=== PATIENT | female | born 1975 | race Caucasian/White ===

== ENCOUNTER 2019-09-11 19:50 | Inpatient (IN) | payer SELFPAY ==
[~2019-09-11] VITALS: Ht 172.7 cm; Wt 81.0 kg
[2019-09-11] MEDS ORDERED: IV RINGERS SOLUTION,LACTATED 1,000 ML IV SCH (20:08)
[2019-09-11 21:02] LABS: INFLUENZA A PATIENT NEGATIVE (NEGATIVE); INFLUENZA B PATIENT NEGATIVE (NEGATIVE)
--- NOTE | 2019-09-11 21:24 | PHYS DOC ---
Past History Past Medical History: Bronchitis, Kidney Stones, Other Additional Past Medical Histor: has 3 kidneys and 3 urethra tubes Additional Past Surgical Histo: ovarian cyst removal Smoking: Cigarettes Alcohol Use: None General Adult EDM: Chief Complaint: FEVER...I ve been sick for a while..Flu like....Diarrhea..headache,...aches..but then I developed this bad cough... I was exposed to this cassius that came back from [place]..and three in the group became + for Covid...but he was coming every day to [employer] where I work..." HPI: HPI: Patient is a 43 year old female who presents with above hx fever, cough, diarrhea, malaise, arthralgia, myalgia, and weakness. Patient does have some right chest wall pain associated with repeat coughing episodes. Patient does smoke. No recent travel. But has contact with a individual who came back from [place] in which 3 people in his group were tested positive for Covid19. Patient works at [employer]. Patient did not get flu vaccination this season. Patient states chest pain is been persistent with cough that is nonproductive the last 2 days. Patient does not normally follow-up with a primary care. Patient does have past medical history of kidney stones some of which required ureteral l stents. Patient has not had any travel outside the [place] area. Her 2 dogs Mackinac is a Great Nain and Pit Bull dog Deisel are well. No hx bad food intake. Review of Systems: Review of Systems: Constitutional: History of fever or chills Eyes: Denies change in visual acuity HENT: History of nasal congestion or sore throat Respiratory: History of nonproductive cough or shortness of breath Cardiovascular: Complains of right chest wall c history hest pain or edema GI: History generalized abdominal pain, nausea, and diarrhea. Currently diarrhea has resolved : Denies dysuria Musculoskeletal: Complains of generalized arthralgia myalgia and weakness Integument: Denies rash Neurologic: Denies headache, focal weakness or sensory changes Endocrine: Denies polyuria or polydipsia Lymphatic: Denies swollen glands Psychiatric: Denies depression or anxiety Heart Score: HEART Score for Chest Pain: HEART Score for Chest Pain Response (Comments) Value Age < 45 0 Risk Factors 1 or 2 Risk Factors 1 Troponin < Normal Limit 0 Total 1 Risk Factors: Risk Factors: DM, Current or recent (<one month) smoker, HTN, HLP, family history of CAD, obesity. Risk Scores: Score 0 - 3: 2.5% MACE over next 6 weeks - Discharge Home Score 4 - 6: 20.3% MACE over next 6 weeks - Admit for Clinical Observation Score 7 - 10: 72.7% MACE over next 6 weeks - Early Invasive Strategies Family History: Family History: Noncontributory to presentation Current Medications: Current Meds: Current Medications Medications (Trade) Dose Ordered Sig/Carley Start Time Stop Time Status Last Admin Dose Admin Lactated Ringer's 1,000 ml @ 100 mls/hr Q10H 09/11/19 20:08 09/12/19 06:07 UNV Allergies: Allergies: No known drug allergies Physical Exam: PE: Constitutional: Mild distress, non-toxic appearance. [] HENT: Normocephalic, atraumatic, bilateral external ears normal, oropharynx dry, no oral exudates, nose normal. [] Eyes: PERRLA, EOMI, conjunctiva normal, no discharge. [] Neck: Normal range of motion, no tenderness, supple, no stridor. [Right external jugular IV Cardiovascular: Tachycardia heart rate regular rhythm, no murmur [] Lungs & Thorax: Bilateral breath sounds equal at apex with scattered wheezing throughout on auscultation []. Reproducible right pectoral chest wall pain on palpation and movement of right arm. Abdomen: Bowel sounds hyperactive l, soft, mild generalized tenderness, no masses, no pulsatile masses. [] No rebound Skin: Warm, dry, no erythema, no rash. Cap refill less than 2 seconds in fingers Back: No tenderness, no CVA tenderness. [] Extremities: No tenderness, no cyanosis, no clubbing, ROM intact, bilateral ankle edema .. No psoas sign Neurologic: Alert and oriented X 3, normal motor function, normal sensory function, no focal deficits noted. [] Psychologic: Affect anxious , judgement normal, mood normal. [] Current Patient Data: Labs: Laboratory Tests Test 09/11/19 20:02 Group A Streptococcus Rapid Negative (NEGATIVE) Vital Signs: Vital Signs Date Time Temp Pulse Resp B/P (MAP) Pulse Ox O2 Delivery O2 Flow Rate FiO2 09/11/19 19:50 98.8 104 30 131/79 (96) 98 Room Air EKG: EKG: My interpretation EKG shows a sinus rhythm at 89 bpm. No findings of acute STEMI of contralateral changes. [] Radiology/Procedures: Radiology/Procedures: My interpretation chest x-ray shows no acute cardiopulmonary findings. [] Course & Med Decision Making: Course & Med Decision Making Pertinent Labs and Imaging studies reviewed. (See chart for details) Admit to , consult cardiology. US legs for edema, pain. Impression: 1. Fever 2. Viral syndrome 3. History of possible exposure to Covid 19 4. Tobacco use 5. Bronchitis 6. Anemia= hemoglobin 9.8 microcytic 71-hypochromic 22 7. Chest Wall pain.- Heart score 3 8. Elevated D-dimer 1.01 [] Dragon Disclaimer: Dragon Disclaimer: This electronic medical record was generated, in whole or in part, using a voice recognition dictation system. Departure Departure: Disposition: HOME/RESIDENCE PRIOR TO ADM Condition: STABLE COVID-19 Assessment COVID-19 Patient Risks: Age 65 or older: No Sign of co-morbidity: Yes Exp to person + for COVID: Yes Exp to PUI: Yes Travel from affected area: No Lower respiratory symptoms: Yes Fever: Yes Comments: Use PPE equipment as provided,hat, face shield, M95, yellow gown, shoe cover and gloves. Dragon Disclaimer This chart was dictated in whole or in part using Voice Recognition software in a busy, high-work load, and often noisy Emergency Department environment. It may contain unintended and wholly unrecognized errors or omissions. Dragon Disclaimer This chart was dictated in whole or in part using Voice Recognition software in a busy, high-work load, and often noisy Emergency Department environment. It may contain unintended and wholly unrecognized errors or omissions. Dragon Disclaimer This chart was dictated in whole or in part using Voice Recognition software in a busy, high-work load, and often noisy Emergency Department environment. It may contain unintended and wholly unrecognized errors or omissions. BOB NUNEZ MD Sep 11, 2019 21:24
[2019-09-11 21:27] LABS: BASO # 0.1 x10^3/uL (0.0-0.2); BASO % 2 % (0-3); EOS % 1 % (0-3); HEMATOCRIT 31.7 % (36.0-47.0); HEMOGLOBIN 9.8 g/dL (12.0-15.5); LYMPH # 1.1 x10^3/uL (1.0-4.8); LYMPH % 31 % (24-48); MEAN CORPUSCULAR HEMOGLOBIN 22 pg (25-35); MEAN CORPUSCULAR HGB CONC 31 g/dL (31-37); MEAN CORPUSCULAR VOLUME 71 fL (79-100); MONO # 0.3 x10^3/uL (0.0-1.1); MONO % 8 % (0-9); NEUT # 2.1 x10^3uL (1.8-7.7); NEUT % 58 % (31-73); PLATELET COUNT 359 x10^3/uL (140-400); RED BLOOD COUNT 4.44 x10^6/uL (3.50-5.40); RED CELL DISTRIBUTION WIDTH 18.2 % (11.5-14.5); WHITE BLOOD COUNT 3.6 x10^3/uL (4.0-11.0)
--- NOTE | 2019-09-11 21:28 | RAD ---
PORTABLE CHEST 1V 09/11/2019 8:08 PM INDICATION: Cough COMPARISON: None available TECHNIQUE: Portable frontal view of the chest is provided. FINDINGS: The cardiomediastinal silhouette is within normal limits. Lungs are clear. There are no significant pleural effusions. There is no pulmonary vascular congestion. No pneumothorax. No suspicious osseous abnormality. IMPRESSION: There is no acute cardiopulmonary process. Electronically signed by: Smiley Whitaker MD (09/11/2019 9:25 PM) [facility]
[2019-09-11 21:44] LABS: ANION GAP 10 (6-14); BLOOD UREA NITROGEN 7 mg/dL (7-20); CALCIUM 9.3 mg/dL (8.5-10.1); CARBON DIOXIDE 26 mmol/L (21-32); CHLORIDE 101 mmol/L (98-107); CREATININE 0.7 mg/dL (0.6-1.0); GFR 91.3; GLUCOSE 96 mg/dL (70-99); SODIUM 137 mmol/L (136-145)
[2019-09-11 21:48] LABS: ALK PHOS 87 U/L (46-116); ALT (SGPT) 18 U/L (14-59); AST (SGOT) 22 U/L (15-37); DIRECT BILIRUBIN < 0.1 mg/dL (0.0-0.2); LIPASE 139 U/L (73-393); MAGNESIUM 2.1 mg/dL (1.8-2.4); TOTAL BILIRUBIN 0.2 mg/dL (0.2-1.0)
[2019-09-11 21:54] LABS: ANISOCYTOSIS SLIGHT; HYPOCHROMIA MOD; MICROCYTOSIS MOD
[2019-09-11 21:55] LABS: PLT ESTIMATE ADEQUATE (ADEQUATE)
[2019-09-11 22:16] LABS: AMPHETAMINE/METHAMPHETAMINE NEG (NEG); BARBITURATES NEG (NEG); BENZODIAZEPINES NEG (NEG); CANNABINOIDS NEG (NEG); COCAINE NEG (NEG); METHADONE NEG (NEG); OPIATES NEG (NEG); PHENCYCLIDINE NEG (NEG)
[2019-09-11 22:20] LABS: BACTERIA,URINE 0 /HPF (0-FEW); BILIRUBIN,URINE NEG (NEG); CLARITY,URINE CLEAR; COLOR,URINE YELLOW; GLUCOSE,URINE NEG (NEG); NITRITE,URINE NEG (NEG); RBC,URINE OCC /HPF (0-2); SQUAMOUS EPITHELIAL CELL,UR MANY /LPF; UROBILINOGEN,URINE 0.2 mg/dL (0.2 mg/dL)
[2019-09-11] MEDS ORDERED: ENOXAPARIN ** NOTE DOSE ** SYRINGE SQ ONE (23:00)
[2019-09-11] MEDS ORDERED: HYDROcodon/IBUPROFEN 7.5/200MG 1 TAB TABLET PO ONE (23:00)
[2019-09-11] MEDS ORDERED: ONDANSETRON PF 4 MG/2 ML VIAL. IVP PRN (23:00)
[2019-09-11] MEDS ORDERED: ANTI-COAG MONITOR BY PHARMACY. MC PRN (23:15)
[2019-09-12] VITALS (7 sets, daily range): BP systolic 92–118; BP diastolic 49–65
--- NOTE | 2019-09-12 01:45 | NUR ---
Admit Note: Pt transported via EMS from ED to ICU room 3 (med/surg status). VSS. No c/o pain or n/v at this time. Pt able to ambulate from cart to bed w/no assistance. Admission documentation completed, pt oriented to room and unit routines, how to use call light system, and toileting in ICU rooms. Pt has no further questions at this time. Will continue to monitor.
--- NOTE | 2019-09-12 04:57 | EKG ---
[address] [address] Test Date: 2019-09-11 Test Time: 20:25:45 Pat Name: NU NEW Department: Room: [id number] 1 Gender: F Operations Research Manager: : 1975 Requested By: BOB NUNEZ Order Number: [id number] Reading MD: Nabil Peterson Measurements Intervals [place] Rate: 89 P: 45 FL: 156 QRS: 71 QRSD: 82 T: 42 QT: 336 QTc: 410 Interpretive Statements SINUS ARRHYTHMIA Electronically Signed On 09-12-2019 8:06:53 CDT by Nabil Peterson
[2019-09-12 05:04] LABS: BASO % 2 % (0-3); EOS # 0.1 x10^3/uL (0.0-0.7); EOS % 3 % (0-3); HEMATOCRIT 31.6 % (36.0-47.0); HEMOGLOBIN 9.6 g/dL (12.0-15.5); LYMPH # 1.2 x10^3/uL (1.0-4.8); LYMPH % 45 % (24-48); MEAN CORPUSCULAR HEMOGLOBIN 22 pg (25-35); MEAN CORPUSCULAR HGB CONC 30 g/dL (31-37); MEAN CORPUSCULAR VOLUME 72 fL (79-100); MONO # 0.2 x10^3/uL (0.0-1.1); MONO % 8 % (0-9); NEUT # 1.1 x10^3uL (1.8-7.7); NEUT % 43 % (31-73); PLATELET COUNT 323 x10^3/uL (140-400); RED BLOOD COUNT 4.39 x10^6/uL (3.50-5.40); RED CELL DISTRIBUTION WIDTH 18.3 % (11.5-14.5); WHITE BLOOD COUNT 2.7 x10^3/uL (4.0-11.0)
[2019-09-12 05:25] LABS: CALCIUM 8.6 mg/dL (8.5-10.1); CREATININE 0.7 mg/dL (0.6-1.0); GFR 91.3; POTASSIUM 3.7 mmol/L (3.5-5.1)
[2019-09-12 05:50] LABS: PLT ESTIMATE ADEQUATE (ADEQUATE)
[2019-09-12 05:51] LABS: ANISOCYTOSIS SLIGHT; HYPOCHROMIA MOD
[2019-09-12 05:52] LABS: MICROCYTOSIS MOD; OVALOCYTES FEW
[2019-09-12] MEDS: IV RINGERS SOLUTION,LACTATED 1,000 ML IV SCH ×3 (06:00→16:00)
[2019-09-12] MEDS ORDERED: IPRATRPIUM/ALBUTEROL 0.5/2.5MG 3 ML NEBU. NEB SCH (08:00)
[2019-09-12] MEDS ORDERED: ALBUTEROL SULFATE 8GM INHALER. INH PRN (08:45)
[2019-09-12] MEDS ORDERED: ENOXAPARIN ** NOTE DOSE ** SYRINGE SQ SCH (09:00)
--- NOTE | 2019-09-12 10:00 | RAD ---
Exam: Bilateral venous doppler. Indication: Bilateral leg edema. Results: Lower extremity venous Doppler was performed. Real-time imaging with compression, color flow imaging and Doppler with augmentation were utilized. There is normal compression and augmentation. Phasic flow is demonstrated. There is no color flow or B scale abnormality. Impression: Normal bilateral venous doppler. Electronically signed by: Joe Cedeno MD (09/12/2019 9:57 AM) [id number]
[2019-09-12] MEDS ORDERED: ACETAMINOPHEN 325 MG TABLET PO ONE (10:45)
[2019-09-12] MEDS ORDERED: ACETAMINOPHEN 325 MG TABLET PO PRN (10:45)
[2019-09-12] MEDS: ASPIRIN 325 MG TABLET PO SCH (10:54)
[2019-09-12] MEDS: HYDROcodone/APAP 5/325MG 1 TAB TABLET PO PRN ×2 (10:54→17:41)
--- NOTE | 2019-09-12 12:47 | NUR ---
IP: patient test pending for COVID-19, requires contact and airborne precautions.
[2019-09-12] MEDS ORDERED: ASA/APAP/CAFFEINE 250/250/65MG TABLET. PO PRN (14:45)
--- NOTE | 2019-09-12 18:09 | HP ---
ADMIT DATE: 09/11/2019 HISTORY OF PRESENT ILLNESS: The patient is a 43-year-old female patient, who came to the Emergency Room complaining of having fever with headache that has been going on for almost a week, has also chest pain, had had cough that has been going on for almost 2 weeks ago and had had fever when she came to the Emergency Room up to 100.8. She also has cough with yellowish sputum. She stated that she was exposed, who came from [place] and 3 in group became positive for COVID-19, but he was coming every day [employer] where she works. She also complained of generalized arthralgia, myalgia and weakness. She does have some chest wall pain associated with repeated coughing episode. She does smoke, but denied any recent travel. She has contacted individuals who came back from [place] in which 3 people in his group were tested positive for COVID-19. 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. She did not get her flu vaccination this season. She does not have any primary care physician's office. PAST MEDICAL HISTORY: Significant for kidney stones for which she underwent cystoscopy and retrograde ureteroscopy and stent deployment x 2. She had also a laparoscopic laparotomy for ovarian cyst. PAST SURGICAL HISTORY: Significant for cystoscopy and retrograde ureteroscopy and stent deployment x 2 and exploratory laparotomy for ovarian cyst. ALLERGIES: SHE IS ALLERGIC TO SULFA DRUGS. MEDICATIONS: She is not on any medication, normally by prescription or [id number] according to her. FAMILY HISTORY: She has 2 older brothers and 1 younger brother. Her younger brother is known to have diabetes. Her father is alive at age of 74 and healthy. Mother is alive at age of 72 and she has diabetes, systemic lupus erythematosus, sarcoidosis and hypertension. SOCIAL HISTORY: She is , has 2 sons and 1 daughter. She smokes half to one pack a day, does not drink alcohol or use any recreational drugs. 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. REVIEW OF SYSTEMS: The patient denied any blurring of vision, cataract, glaucoma or macular degeneration. Denied any earache, tinnitus or sensorineural deafness. Denied any nosebleed, stuffy nose or postnasal drip. Denied any sore throat, sore tongue, toothache, hoarseness of voice or difficulty swallowing. Denied any nausea, vomiting, but did complain of diarrhea for a few days about 3-4 days ago before she came to the Emergency Room. Denied any dysuria, frequency or hematuria. Did complain of chest pain, cough with scanty yellowish sputum according to her. PHYSICAL EXAMINATION: GENERAL: On arrival to the Emergency Room, she was slightly tachypneic. There is no pallor, jaundice, cyanosis or thyromegaly. No jugular venous distention. No limb edema. VITAL SIGNS: Her heart rate was 104, blood pressure was 131/79, temperature was 98.8, respiratory rate was 30 and oxygen saturation was 98%. HEAD, EYES, EARS, NOSE AND THROAT: Showed normocephalic, atraumatic. NECK: Supple. HEART: Showed normal first and second heart sounds. No gallop or murmur. CHEST: Showed central trachea, equal air entry with scattered wheezing throughout on auscultation. She has a reducible right chest wall pain on palpation and movement of her right arm. ABDOMEN: Soft, nontender. No guarding or rigidity. No organomegaly. All hernial orifice intact. Bowel sounds normal. NEUROLOGIC: She is awake, alert, responding appropriately. EXTREMITIES: She moves extremities without difficulty. She ambulates without assistance or assistive devices. PSYCHIATRIC: Her affect is anxious, but with normal mood and judgment. LABORATORY DATA: Her lab work on arrival showed a white cell count of 3600, hemoglobin 9.8, hematocrit 31.7, MCV 71 and platelet count 359,000. Her chemistry showed a serum sodium 137, potassium 4, chloride 101, bicarbonate 26, anion gap of 10, BUN 7, creatinine 0.7, estimated GFR was 91 mL per minute, her glucose was 96, calcium was 9.3, magnesium 2.1. Total bilirubin, AST, ALT, alkaline phosphatase were normal. Total protein was 8, albumin was 4. Serum lipase was 139. TSH was normal at 4.231. Her prothrombin time was 10.4, INR of 1, APTT was 24, and D-dimer was 1.01. Urinalysis was essentially unremarkable. Toxic screen was negative and her influenza A and B as well as group A streptococcus rapid test was negative. Her maternal hCG beta unit only 1. Her chest x-ray showed that the cardiomediastinal silhouette is within normal limits. Lungs are clear. There is no significant pleural effusion. There is no pulmonary vascular congestion or pneumothorax. Given the slightly elevated D-dimer, she had bilateral lower extremity venous Doppler ultrasound, which showed no evidence of deep vein thrombosis. ASSESSMENT AND PLAN: The patient was admitted to the ICU for observation. She was started on Lovenox, albuterol inhaler. Continue with IV fluid and Excedrin headache as well as hydrocodone. She was swabbed for COVID-19, the result of which is still pending. We will observe her. Continue with all her current medication. I will cut down her Lovenox to prophylactic dose. CLAUDE MORALEZ MD DR: HONG/kavita JOB#: [id number] / [id number]
[2019-09-12] MEDS ORDERED: MELATONIN 3 MG TABLET PO PRN (20:20)
[2019-09-12] MEDS: NICOTINE 21MG PATCH. TD SCH (20:20)
--- NOTE | 2019-09-12 22:00 | PN ---
DATE: 09/12/2019 SUBJECTIVE: The patient was admitted yesterday with a complaint of fever, headache, chest pain, cough which has been going on for almost 2 weeks. She has also some episodes of diarrhea. Her lab work showed that she has leukopenia and has also microcytic hypochromic anemia and she was admitted. Her influenza A and B as well as rapid streptococcal test was negative. Her COVID-19 test was sent. Results were still pending at the time of this dictation. When I saw her this afternoon, she continued to complain of chest pain, cough that is mostly dry and headache, although the headache has responded to Excedrin. PHYSICAL EXAMINATION: GENERAL: When I saw her this afternoon, she looked well and was clearly in no apparent respiratory distress. No pallor, jaundice, cyanosis or thyromegaly. No jugular venous distention. No limb edema. VITAL SIGNS: Her heart rate was 73, blood pressure was 104/55, temperature was 97.5, respiratory rate was 10 and oxygen saturation was 100% on room air. HEAD, EYES, EARS, NOSE AND THROAT: Showed normocephalic, atraumatic. NECK: Supple. HEART: Showed normal first and second heart sounds. No gallop, rub or murmur. CHEST: Clear to auscultation. No crepitation or rhonchi. ABDOMEN: Distended, soft, nontender. No guarding or rigidity. No organomegaly. All hernial orifice intact. Bowel sounds normal. NEUROLOGIC: She is awake, alert, responding appropriately. All cranial nerves intact. She moves extremities without difficulty. LABORATORY DATA: Her lab work this morning showed his white cell count is 2.7. hemoglobin 9.6, hematocrit 32, MCV 72 and platelet count 323,000. Her chemistry showed a serum sodium 137, potassium 3.7, chloride 103, bicarbonate 27, anion gap of 7, BUN 7, creatinine 0.7, estimated GFR was 91 mL per minute. Her glucose was 93, calcium was 8.6. ASSESSMENT: Fever with acute bronchitis, possible exposure to COVID-19, tobacco use and microcytic hypochromic anemia, chest wall pain and elevated D-dimer. Her venous Doppler ultrasound of both lower extremities were negative. Her influenza A and B and Streptococcus rapid test were negative. We will continue with current plan of management. I will cut down her Lovenox from 80 to 40 mg for DVT prophylaxis. Await the result of the COVID-19. The patient seems to be hemodynamically stable. She is afebrile. She is on room air, maintaining her oxygen saturation at 100%. I will probably keep her overnight and once we have the test results and even if she is positive and remains stable like she is today, she can be probably discharged home to self isolate. CLAUDE MORALEZ MD DR: HONG/kavita JOB#: [id number] / [id number]
[2019-09-13 00:03] VITALS: BP 108/71
[2019-09-13] MEDS: HYDROcodone/APAP 5/325MG 1 TAB TABLET PO PRN ×3 (04:31→13:14)
[2019-09-13 04:39] VITALS: BP 117/70
--- NOTE | 2019-09-13 06:19 | NUR ---
Pt stable throughout shift. Did request dose of pain medication during the night. Pt tolerated being on RA and has been afebrile. Received sleep med last night. Still awaiting COVID results.
[2019-09-13] MEDS: NICOTINE 21MG PATCH. TD SCH (08:43)
[2019-09-13] MEDS: ASPIRIN 325 MG TABLET PO SCH (08:44)
[2019-09-13] MEDS ORDERED: ENOXAPARIN 40 MG/0.4 ML SYRINGE. SQ SCH (09:00)
[2019-09-13 11:00] VITALS: BP 119/46
[2019-09-13] MEDS ORDERED: HYDR-2155 PO (12:43)
--- NOTE | 2019-09-13 13:35 | DS ---
DATE OF DISCHARGE: HOSPITAL COURSE: The patient was admitted to the Emergency Room with possible exposure to COVID-19 as she apparently was exposed to a person who came from [place] and three in his group became positive and he was coming every day to [facility] where she works. She also complained of generalized arthralgia, myalgia and weakness. She does have some chest wall pain associated with repeated coughing episode, however, she also is a smoker. She has also mild low-grade fever when she came in and her lab work also showed that she has leukopenia. Her influenza A, B and group A streptococcus were negative and her COVID-19 by PCR was negative. The patient remained hemodynamically stable, afebrile, and maintaining her oxygen saturation at 99% on room air and therefore, a decision was made to discharge her home to self-isolate. I explained to the patient test is only about 70% and 30% false negative. Obviously, if she developed fever or more shortness of breath or cough, she needs to come to the hospital. Otherwise, as of now, she is better off going home and self-isolate. We gave a prescription for hydrocodone and was advised to use Excedrin for her migraine headache. PHYSICAL EXAMINATION: GENERAL: On examining her today, she looked well and was eating her lunch comfortably, in no apparent distress. VITAL SIGNS: Her heart rate was 79, blood pressure was 117/70, temperature was 98, respiratory rate was 16, and oxygen saturation was 98%. The rest of clinical exam is stable. DISCHARGE MEDICATIONS: The patient was discharged home to continue on hydrocodone as well as Excedrin. FINAL DISCHARGE DIAGNOSES: Possible exposure to COVID-19; however, test was negative. Other medical problems include microcytic hypochromic anemia and leukopenia. Her platelet counts are normal. CLAUDE MORALEZ MD DR: HONG/kavita JOB#: [id number] / [id number]
== END 2019-09-13 14:00 | disposition home or self-care (01) | DRG 866 ==
LOC: ER 19:50 → ICU 23:00
PROVIDERS: ADMIT Internal Medicine; ATTEND Internal Medicine
DX: B34.9 Viral infection, unspecified (principal); J20.9 Acute bronchitis, unspecified; D50.9 Iron deficiency anemia, unspecified; D72.819 Decreased white blood cell count, unspecified; F17.210 Nicotine dependence, cigarettes, uncomplicated; G43.909 Migraine, unspecified, not intractable, without status migrainosus; Z03.818 Encounter for observation for suspected exposure to other biological agents ruled out; Z82.49 Family history of ischemic heart disease and other diseases of the circulatory system; Z87.442 Personal history of urinary calculi; Z83.3 Family history of diabetes mellitus; Z79.899 Other long term (current) drug therapy; Z88.2 Allergy status to sulfonamides
CPT/HCPCS: 36415; 71045; 80048; 80076; 80307; 81001; 82550; 83605; 83690; 83735; 83880; 84443; 84484; 84702; 85025; 85379; 85610; 85730; 87040; 87070; 87804; 87880; 93005; 93970; 94640; 96360; 96361; 96372; G0238; J1650; J7120; J7613; 99285-25